=== PATIENT | female | born 1980 | race Caucasian/White ===

== ENCOUNTER 2017-12-07 03:37 | Emergency (ER) | payer OTHER ==
[~2017-12-07] VITALS: Ht 162.6 cm; Wt 113.7 kg
[~2017-12-07 03:37] MED LIST: EFFEXOR75 MG PO; LANTUS 10100 UNITS/ SC; NOVOLOG 10100 UNITS/ SC; PRENATAL TABLE1 EAC3 PO; SINUS PRESSURE-10 MG PO
[2017-12-07 04:43] LABS: ALBUMIN 4.1 g/dL (3.2-4.8); HEMATOCRIT 40.9 % (36.0-46.0); HEMOGLOBIN 14.4 G/DL (11.9-15.5); MCH 32.8 PG (29.0-34.0); MCHC 35.2 G/DL (30.0-36.0); MCV 93.2 FL (83-99); PLATELET COUNT 190 K/uL (156-360); RBC DIS.WIDTH-CV 13.3 % (11.8-14.6); RBC DIS.WIDTH-SD 45.5 % (39-53); RED BLOOD COUNT 4.39 M/uL (3.80-5.20); WHITE BLOOD COUNT 9.7 K/uL (4.1-10.2)
[2017-12-07 04:44] LABS: CHLORIDE 105 mEq/L (99-109); POTASSIUM 4.1 mEq/L (3.7-5.4); SODIUM 138 mEq/L (136-147)
[2017-12-07 04:44] LABS: APPEARANCE CLEAR ((CLEAR)); BILIRUBIN NEGATIVE; BLOOD NEGATIVE; COLOR YELLOW ((YELLOW)); GLUCOSE (STRIP) NEGATIVE; KETONES NEGATIVE; LEUKOCYTES NEGATIVE; NITRITE NEGATIVE; PROTEIN (STRIP) NEGATIVE; SPECIFIC GRAVITY 1.018 (1.000-1.030); UCUL ADDED? NO; UROBILINOGEN 0.2 MG/DL (0.2-1.0)
[2017-12-07 04:46] LABS: GLUCOSE 175 mg/dL (70-99); TOTAL PROTEIN 7.1 g/dL (6.4-8.3)
[2017-12-07 04:48] LABS: TOTAL BILIRUBIN 0.3 mg/dL (0.0-1.0)
[2017-12-07 04:49] LABS: ALKALINE PHOSPHATASE 62 IU/L (3-129)
[2017-12-07 04:50] LABS: CREATININE 0.7 mg/dL (0.6-1.3); GFR ESTIMATE (CALCULATED) > 59 mL/min/
[2017-12-07 04:51] LABS: AST (GOT) 13 IU/L (2-34); UREA NITROGEN (BUN) 10 mg/dL (9-23)
[2017-12-07 04:52] LABS: ALT (GPT) 16 IU/L (3-49)
[2017-12-07 04:59] LABS: QUANTITATIVE HCG < 4.0 MIU/ML
[2017-12-07] MEDS ORDERED: ZANTAC150 MG PO (05:07)
[2017-12-07] MEDS ORDERED: ULTRAM50 MG PO (06:02)
[2017-12-07 06:08] VITALS: BP 138/89
== END 2017-12-07 06:09 | disposition home or self-care (01) ==
LOC: EME 03:37
DX: R10.9 Unspecified abdominal pain (principal); R11.0 Nausea; R16.2 Hepatomegaly with splenomegaly, not elsewhere classified; K44.9 Diaphragmatic hernia without obstruction or gangrene; E11.9 Type 2 diabetes mellitus without complications; Z79.4 Long term (current) use of insulin
CPT/HCPCS: 80053; 81003; 84702; 85027; 99281; 99285; J1630; J2405; J3010; J7030